=== PATIENT | male | born 1995 | race Caucasian/White ===

== ENCOUNTER 2018-07-04 09:07 | Emergency (ER) | payer OTHER ==
[2018-07-04 09:21] VITALS: BP 151/113; PULSE 120; TEMP 98.5; BMI 33.6
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
[2018-07-04] MEDS ORDERED: DIPHTH,PERTUSS(ACELL),TET 0.5 ML DISP.SYRIN IM ONE ×2 (10:13→10:20)
[2018-07-04] MEDS ORDERED: AMOX TR/POT CLAV 875MG/125MG TABLETS (FP) PO ONE (10:47)
[2018-07-04] MEDS ORDERED: CLINDAMYCIN HCL 150 MG CAPSULE (FP) PO ONE (10:47)
[2018-07-04] MEDS ORDERED: chlordiazePOXIDE HCL 25 MG CAPSULE PO ONE (11:37)
[2018-07-04] MEDS ORDERED: CLINDAMYCIN HCL 150 MG CAPSULE (FP) ONE (11:43)
[2018-07-04] MEDS ORDERED: chlordiazePOXIDE HCL 25 MG CAPSULE ONE (11:43)
[2018-07-04] MEDS ORDERED: AMOX TR/POT CLAV 875MG/125MG TABLETS (FP) ONE (11:43)
== END 2018-07-04 12:42 | disposition home or self-care (01) ==
LOC: JER 09:07
PROC: 09QKXZZ Repair Nasal Mucosa and Soft Tissue, External Approach (ICD-10-PCS; principal; 2018-07-04)
PROC: 3E0234Z Introduction of Serum, Toxoid and Vaccine into Muscle, Percutaneous Approach (ICD-10-PCS; 2018-07-04)
DX: S01.21XA Laceration without foreign body of nose, initial encounter (principal); S00.12XA Contusion of left eyelid and periocular area, initial encounter; S00.11XA Contusion of right eyelid and periocular area, initial encounter; Y04.1XXA Assault by human bite, initial encounter; Y93.89 Activity, other specified; Y92.89 Other specified places as the place of occurrence of the external cause; Y99.8 Other external cause status
CPT/HCPCS: 70450-TC; 70486-TC; 90715; 99281-25

== ENCOUNTER 2018-07-08 10:31 | Emergency (ER) | payer SELFPAY ==
[2018-07-08 10:43] VITALS: BP 142/98; PULSE 106; TEMP 99.3; BMI 22.1
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
== END 2018-07-08 12:21 | disposition home or self-care (01) ==
LOC: JERFT 10:31
DX: Z48.817 Encounter for surgical aftercare following surgery on the skin and subcutaneous tissue (principal)
CPT/HCPCS: 99281-25

== ENCOUNTER 2022-03-20 15:14 | Emergency (ER) | payer OTHER ==
[2022-03-20 16:10] VITALS: BP 145/90; PULSE 98; RESP 20; TEMP 99; BMI 26.4
[2022-03-20] MEDS ORDERED: HURRICAINE SP EXT TUBE 1 EA EACH TP ONE (16:53)
[2022-03-20] MEDS ORDERED: BENZOCAINE 20% 57 GM BOTTLE TP ONE ×2 (17:16→17:29)
[2022-03-20] MEDS ORDERED: DEXAMETHASONE SOD PHOSPHATE 4 MG/1 ML VIAL IVPUSH ONE (17:20)
[2022-03-20] MEDS ORDERED: TETRACAINE/BENZOCAINE/BUTAMBEN 20 GM SPR TP ONE (17:20)
[2022-03-20] MEDS ORDERED: CLINDAMYCIN IVPB 300 MG in DEXTROSE 5%-WATER - 48 ML IVPB ONE (17:20)
[2022-03-20] MEDS ORDERED: DEXAMETHASONE SOD PHOSPHATE 4 MG/1 ML VIAL ONE ×2 (17:29→17:53)
[2022-03-20] MEDS ORDERED: CLINDAMYCIN 300 MG PREMIX IVPB 300 MG/50 ML BAG IVPB ONE (17:45)
[2022-03-20] MEDS ORDERED: CLINDAMYCIN 600MG PREMIX IVPB 600 MG/50 ML BAG IVPB ONE ×2 (17:53→17:54)
[2022-03-20] MEDS ORDERED: ALBUTEROL SO4 2.5/IPRATROPIUM 0.5 INH SOL 3 ML VIAL.NEB. NEB ONE (18:02)
== END 2022-03-20 18:37 | disposition home or self-care (01) ==
LOC: JER 15:14
PROC: 0W9 Anatomical Regions, General, Drainage (ICD-10-PCS; principal; 2022-03-20)
PROC: 3E03329 Introduction of Other Anti-infective into Peripheral Vein, Percutaneous Approach (ICD-10-PCS; 2022-03-20)
PROC: 3E033GC Introduction of Other Therapeutic Substance into Peripheral Vein, Percutaneous Approach (ICD-10-PCS; 2022-03-20)
DX: J36 Peritonsillar abscess (principal)
CPT/HCPCS: 99284-25

== ENCOUNTER 2022-05-29 19:30 | Emergency (ER) | payer OTHER ==
[2022-05-29 20:35] VITALS: BP 136/82; PULSE 110; RESP 20; TEMP 98.2; BMI 23.0
[2022-05-30 01:24] LABS: BASO % 3.5 % (0-2.0); HEMOGLOBIN 10.9 GM/dL (11.7-16.9); LYMPH % 13.3 % (8-40); MCH 32.8 pg (25.7-33.7); MEAN CELL VOLUME 99.5 fl (80-96); MEAN PLT VOLUME 8.4 fl (7.5-11.1); MONO % 8.6 % (3.8-10.2); NEUT % 74.6 % (42.8-82.8); PLATELET COUNT 113 10^3/uL (134-434); RBC 3.32 M/mm3 (4.00-5.60); RDW 14.9 % (11.9-15.9); WHITE BLOOD COUNT 10.5 K/mm3 (4.0-10.0)
[2022-05-30 01:46] LABS: CALCIUM 8.5 mg/dL (8.5-10.1)
[2022-05-30 01:47] LABS: ALBUMIN 3.6 g/dl (3.4-5.0); BLOOD UREA NITROGEN 9.9 mg/dL (7-18)
[2022-05-30 01:50] LABS: CREATININE 0.6 mg/dL (0.55-1.3)
[2022-05-30 01:51] LABS: BILIRUBIN,TOTAL 2.5 mg/dL (0.2-1); TOT PROT 8.6 g/dl (6.4-8.2)
[2022-05-30 02:08] LABS: INR 1.53 (0.83-1.09); PROTHROMBIN TIME (PATIENT) 17.7 SEC (9.7-13.0)
[2022-05-30 02:11] LABS: ACTIVATED PTT 36.4 SECONDS (25.2-36.5)
== END 2022-05-30 02:58 | disposition home or self-care (01) ==
LOC: JER 19:30
DX: R04.0 Epistaxis (principal); K76.9 Liver disease, unspecified; F10.10 Alcohol abuse, uncomplicated
CPT/HCPCS: 36415; 80053; 85025; 85610; 85730; 99283-25